=== PATIENT | female | born 1955 | race Caucasian/White ===

== ENCOUNTER 2018-01-10 14:58 | Outpatient (CLI) | payer BC | END 2018-01-10 14:59 | disposition home or self-care (01) | LOC: BICMAMMO 14:58 | PROVIDERS: ATTEND Obstetrics & Gynecology | DX: Z12.31 Encounter for screening mammogram for malignant neoplasm of breast (principal); N64.89 Other specified disorders of breast | CPT/HCPCS: 77063; 77067 ==

== ENCOUNTER 2018-01-15 14:30 | Outpatient (CLI) | payer BC | END 2018-01-15 14:31 | disposition home or self-care (01) | LOC: BICMAMMO 14:30 | PROVIDERS: ATTEND Obstetrics & Gynecology | DX: R92.2 Inconclusive mammogram (principal) | CPT/HCPCS: G0279 ==

== ENCOUNTER 2018-06-15 14:18 | Observation (INO) | payer BC, OTHER ==
--- NOTE | 2018-06-15 15:52 | RAD ---
RADIOGRAPH RIGHT KNEE 4 VIEWS: DATE: 06/15/18. TIME: 2:21 p.m. HISTORY: A 63-year-old female status post traumatic injury to the right knee. FINDINGS: There is a comminuted fracture of the patella, with several bone-width's displacement between the lar gest upper pole fragment and the largest lower pole fragment. There are several fragments in-between . There is prepatellar soft tissue thickening. No definite joint effusion. The distal femur, proxi mal tibia, and proximal fibula, appear to be intact. No dislocation. IMPRESSION: Acute, traumatic, comminuted, and significantly displaced, closed fracture of the patella. POS: [facility]
[2018-06-15 16:39] LABS: #Eosinphils 0.2 thou/uL (0.0-0.7); #Lymphocytes 1.3 thou/uL (1.20-3.40); #Monocytes 0.6 thou/uL (0.11-0.59); %Basophils 0.5 % (0.0-1.0); %Eosinophils 1.8 % (0.0-10.0); %Lymphocytes 14.4 % (21.0-51.0); %Monocytes 6.7 % (0.0-10.0); %Neutrophils 76.7 % (42.0-75.0); Hemoglobin 14.3 g/dL (12.0-16.0); Mean Corpuscular HGB CONC 34.9 g/dL (32.0-36.0); Mean Corpuscular Hemoglobin 34.3 pg (27.0-31.0); Mean Corpuscular Volume 98.1 fL (78.0-98.0); Mean Platelet Volume 6.8 fL (7.4-10.4); Platelet Count 193 thou/uL (130-400); RBC Distribution Width 11.2 % (11.5-14.5); Red Blood Cell (RBC) Count 4.17 mill/uL (4.20-5.40); White Blood Cell (WBC) Count 9.1 thou/uL (4.8-10.8)
[2018-06-15 16:45] LABS: INR-International Normal Ratio 1.1; Prothrombin Time 13.9 SEC (12.0-14.7)
[2018-06-15] MEDS ORDERED: CEFAZOLIN/Water 2 GM/20 ML SYRINGE SLOW IVP SCH (16:45)
[2018-06-15 16:46] LABS: PTT 30.9 SEC (22.9-36.1)
--- NOTE | 2018-06-15 16:58 | CON ---
DATE OF CONSULTATION: 06/15/2018 REQUESTING PHYSICIAN: Elian Martinez MD BRIEF HISTORY OF PRESENT ILLNESS: Patient is a pleasant 63-year-old lady, who was examined in the em ergency department with friends at bedside. She reports that earlier today she slipped and fell on s ome wet surface, landing directly on the point of her right knee. She reports immediate pain, swelli ng, and inability to ambulate. Upon arrival at [facility], x-rays were obtained that showed a comminuted fracture of the patella with displacement. Orthopedic consultation requested as well as request for trauma admission. PAST MEDICAL HISTORY: Remarkable for history of hypothyroidism and mild depression. PAST SURGICAL HISTORY: Hysterectomy. MEDICATIONS: Include Synthroid, hormone replacement, and an antidepressant, for which patient does n ot recall its name. ALLERGIES: None known. SOCIAL HISTORY: The patient has wine with dinner and does so most evenings. She denies a smoking hi story or recreational drug use. FAMILY HISTORY: Noncontributory. REVIEW OF SYSTEMS: The patient denies fevers, chills, or sweats. Denies chest pain or shortness of breath. Denies numbness or tingling in the lower extremity. PHYSICAL EXAMINATION: VITAL SIGNS: Temperature of 98.5 degrees orally. She is found to have a heart rate of 73, respirato ry rate of 16, and a blood pressure of 132/81. HEENT: Atraumatic, normocephalic. HEART: Shows a regular rate and rhythm without murmur. LUNGS: Clear to auscultation bilaterally with good breath sounds. CHEST: Chest wall is nontender. ABDOMEN: Flat and nontender. Pelvis is stable. EXTREMITIES: Remarkable for a lady, who denies any upper extremity discomfort. There is also no dis comfort or deformity of the left hip, knee, ankle, or foot. The right lower extremity is remarkable for a swollen knee with hemarthrosis. She is found to have palpable diastasis of her patellar fractu re. Hip, ankle, and foot appear atraumatic. She is able to wiggle her toes, but does have pain that is referred at the knee with attempts at dorsiflexion of the ankle. X-RAYS: Plain films from the emergency room are remarkable for a comminuted patellar fracture with d isplacement. LABORATORY DATA: Labs are pending with a CBC, metabolic panel, and INR ordered. ASSESSMENT: The patient is a 63-year-old lady, status post ground-level fall sustaining a comminuted right patellar fracture. PLAN: The patient does have a full stomach at this time, and as such, we will allow her to continue eating today and then place her at n.p.o. status after midnight with plans to take her to the operati ng room tomorrow morning for an open reduction and internal fixation of this patella. Today, I discu ssed with patient the risks and benefits of this procedure. The risks include, but are not limited t o bleeding, infection, nerve injury, DVT, PE, posttraumatic arthritis, loss of limb or life. Patient appears to understand and does wish to proceed. She will be admitted to Trauma Service and again n. p.o. after midnight with plans to undergo open reduction and internal fixation.
[2018-06-15 17:04] LABS: ALT (SGPT) 13 U/L (8-55); AST (SGOT) 16 U/L (5-34); Albumin 3.8 g/dL (3.4-4.8); Alkaline Phosphatase 42 U/L (40-150); Anion Gap 12 mmol/L (10-20); BUN (Urea Nitrogen) 14 mg/dL (9.8-20.1); Bilirubin, Total 0.4 mg/dL (0.2-1.2); Calc. Creatinine Clearance 0 mL/min (70-130); Carbon Dioxide 22 mmol/L (23-31); Chloride 107 mmol/L (98-107); Estimated GFR-MDRD 69; Globulin 2.4 g/dL (2.4-3.5); Glucose 124 mg/dL (80-115); Potassium 4.1 mmol/L (3.5-5.1); Protein, Total 6.2 g/dL (6.0-8.3); Sodium 137 mmol/L (136-145)
[2018-06-15] MEDS ORDERED: Dextrose 5% in Water 1,000 ML IV PRN (18:01)
[2018-06-15] MEDS ORDERED: Dextrose 50% Abboject 50 ML SYRINGE SLOW IVP PRN (18:01)
[2018-06-15] MEDS ORDERED: Ketorolac Tromethamine 30 MG/ML VIAL IVP PRN (18:01)
[2018-06-15 18:45] VITALS: BMI 20.1
--- NOTE | 2018-06-15 19:31 | RAD ---
CHEST ONE VIEW: 06/15/18 HISTORY: Preop. FINDINGS: Cardiac silhouette and pulmonary vasculature are unremarkable. Mediastinum is midline. Nipple shadow overlies the right lung base. No lobar consolidation or evidence of pneumothorax. IMPRESSION: No active cardiopulmonary abnormalities are demonstrated. POS: [facility]
--- NOTE | 2018-06-15 20:25 | HP ---
DATE OF CONSULTATION: 06/15/2018 ADMITTING PHYSICIAN: Dr. Quintana. CONSULTING PHYSICIAN: Dr. Baron, Orthopedics. HISTORY OF PRESENT ILLNESS: Ms. 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 She was ambulating in the hallway when she came across some water that was spilled in the floor. She did not recognize water was there and she slipped on the floor l anding directly on the point of her right knee. She was unable to ambulate and felt immediate pain. She was transported to [facility] by EMS. Workup in the emergency department i dentified a comminuted right patellar fracture. Orthopedic Surgery was consulted by ER physician. T rauma Surgery has been consulted for admission and management. PAST MEDICAL HISTORY: 1. Hypothyroidism. 2. Depression. 3. Glaucoma. PAST SURGICAL HISTORY: 1. Hysterectomy. 2. Breast augmentation. MEDICATIONS: 1. Synthroid. 2. Hormone replacement, for which she does not remember the name. 3. Antidepressant, for which she does not remember the name. ALLERGIES: No known drug allergies. SOCIAL HISTORY: Tobacco, none. Alcohol: One glass of wine with dinner per night. Drugs, None. REVIEW OF SYSTEMS: Constitutional: The patient denies chills, fever, recent weight loss or generali zed malaise. HEENT: Denies otorrhea or rhinorrhea, posterior neck pain, sore throat or neck tendern ess. Cardiovascular: Denies chest pain, palpitations or syncope. Respiratory: Denies cough, short ness of breath or wheezing. Gastrointestinal: Denies abdominal pain, constipation, diarrhea, nausea or vomiting. Genitourinary: Denies dysuria, hematuria or frequency. Musculoskeletal: Reports fal l. Reports right knee pain. Skin: Denies rashes or skin changes. Neurologic: Denies headache, di zziness, seizures, mental status changes or sensory changes. Heme/Lymphatic: Denies abnormal bleedi ng. PHYSICAL EXAMINATION: VITAL SIGNS: Blood pressure 115/75, pulse 70, respirations 18, temperature 98.2, pain 0, O2 sat 100% on room air. CONSTITUTIONAL: Well-developed, well-nourished female lying on bed, in no acute distress. HEENT: Atraumatic, normocephalic. No posterior neck tenderness. Trachea midline. RESPIRATORY: Bilateral breath sounds clear. Chest movement symmetrical. CARDIOVASCULAR: Regular rate and rhythm. Heart sounds normal. ABDOMEN: Soft, nontender, nondistended. Pelvis stable. EXTREMITIES: Right lower extremity with knee immobilizer. Neurovascular intact all extremities. Ca p refill brisk in all extremities. NEUROLOGIC: GCS 15. Awake, alert, and oriented x3. SKIN: No rashes or skin changes. Normal color. Warm and dry. BACK: Normal range of motion. No tenderness. LABORATORY DATA: CBC: WBC 9.1, RBC 4.17, hemoglobin 14.3, hematocrit 41.0, platelets 193. Coagulat ion: PT 13.9, INR 1.1. Chemistry: Sodium 137, potassium 4.1, chloride 107, carbon dioxide 22, BUN 14, creatinine 0.83, glucose 124, calcium 9.0, total bilirubin 0.4. ASSESSMENT: 1. Status post ground level fall. 2. Right comminuted knee fracture. 3. History of hypothyroidism, present on admission. 4. History of glaucoma. 5. History of depression. PLAN: 1. Admit to surgical floor by Trauma Services. 2. Regular diet, then n.p.o. after midnight. 3. IV fluids at midnight. 4. IV Tylenol and Toradol. Morphine for breakthrough pain. 5. EKG pending. We will check. 6. Pepcid for gastritis prophylaxis. 7. CBC and BMP in a.m. prior to OR. 8. PT and OT consultation. 9. Case management for discharge planning. Anticipate patient will discharge postoperatively. The patient was reviewed with Dr. Quintana, who agrees with plan.
[2018-06-15] MEDS: Famotidine/PF 20 mg/2ml Vial SLOW IVP SCH (21:22)
[2018-06-16] MEDS: Sodium Chloride 0.9% 1,000 ML IV SCH ×2 (00:26→11:56)
[2018-06-16] MEDS: Acetaminophen 1,000 MG in Premix Bag 1 BAG IVPB SCH ×3 (00:26→11:56)
[2018-06-16 05:31] LABS: #Basophils 0.1 thou/uL (0.0-0.2); #Eosinphils 0.2 thou/uL (0.0-0.7); #Lymphocytes 2.1 thou/uL (1.20-3.40); #Monocytes 0.8 thou/uL (0.11-0.59); #Neutrophils 3.9 thou/uL (1.40-6.50); %Basophils 0.7 % (0.0-1.0); %Eosinophils 3.4 % (0.0-10.0); %Lymphocytes 29.3 % (21.0-51.0); %Neutrophils 55.6 % (42.0-75.0); Mean Corpuscular HGB CONC 34.6 g/dL (32.0-36.0); Mean Corpuscular Hemoglobin 34.2 pg (27.0-31.0); Mean Corpuscular Volume 98.9 fL (78.0-98.0); Mean Platelet Volume 6.9 fL (7.4-10.4); Platelet Count 165 thou/uL (130-400); RBC Distribution Width 11.3 % (11.5-14.5)
[2018-06-16 05:58] LABS: Anion Gap 11 mmol/L (10-20); BUN (Urea Nitrogen) 13 mg/dL (9.8-20.1); Calc. Creatinine Clearance 66 mL/min (70-130); Calcium 8.1 mg/dL (7.8-10.44); Carbon Dioxide 25 mmol/L (23-31); Chloride 108 mmol/L (98-107); Estimated GFR-MDRD 76; Glucose 87 mg/dL (80-115); Magnesium 2.1 mg/dL (1.6-2.6); Phosphorus 3.9 mg/dL (2.3-4.7); Potassium 3.7 mmol/L (3.5-5.1); Sodium 140 mmol/L (136-145)
[2018-06-16] MEDS ORDERED: CEFAZOLIN/Water 2 GM/20 ML SYRINGE ONE (07:38)
[2018-06-16] MEDS ORDERED: Fentanyl 100 MCG/2 ML VIAL ONE ×3 (07:44→11:03)
[2018-06-16] MEDS ORDERED: Promethazine HCl 25 MG/ML VIAL IM PRN (10:16)
[2018-06-16] MEDS ORDERED: Promethazine HCl 25 MG/ML VIAL SLOW IVP PRN (10:16)
[2018-06-16] MEDS ORDERED: Ondansetron HCl/PF 4 MG/2 ML Vial IVP PRN (10:16)
[2018-06-16] MEDS ORDERED: Ketorolac Tromethamine 30 MG/ML VIAL ONE (10:59)
--- NOTE | 2018-06-16 11:05 | RAD ---
2 VIEWS RIGHT KNEE: Date: 06/16/18 HISTORY: Open reduction and internal fixation right knee fraacture4. FINDINGS: Two views of right knee obtained. Images demonstrate open reduction and internal fixation of a patell ar fracture. Wires are in place. Proximal and distal patellar fracture fragments are in alignment. IMPRESSION: Open reduction and internal fixation of patellar fracture. POS: [facility]
[2018-06-16] MEDS ORDERED: Lidocaine 1% PF 5 ML VIAL ONE (11:13)
[2018-06-16] MEDS ORDERED: Ondansetron HCl/PF 4 MG/2 ML Vial ONE (11:13)
[2018-06-16] MEDS ORDERED: PHENYLEPHRINE-NS 100 MCG/ML 10 ML SYRINGE ONE (11:13)
[2018-06-16] MEDS ORDERED: PROPOFOL 200 MG/20 ML VIAL ONE (11:13)
[2018-06-16] MEDS: Famotidine/PF 20 mg/2ml Vial SLOW IVP SCH (11:56)
--- NOTE | 2018-06-16 12:35 | OP ---
DATE OF SURGERY: 06/16/2018. PREOPERATIVE DIAGNOSIS: Right severely comminuted patella fracture, closed. POSTOPERATIVE DIAGNOSIS: Right severely comminuted patella fracture, closed. SURGICAL PROCEDURE: Open reduction and internal fixation of right patella. ANESTHESIA: General. SURGEON: Nate Baron M.D. HELP DESK SPECIALIST: Ade Villagran PA-C TOURNIQUET TIME: 93 minutes at 300 mmHg. BLOOD LOSS: Less than 10 mL. IMPLANTS: 0.062 K-wires x2 with 18 gauge cerclage wire. COMPLICATIONS: None. DRAINS: None. SPECIMEN: None. FINDINGS: Severely comminuted patellar fracture with satisfactory reduction. INDICATIONS: Patient is a pleasant 63-year-old lady status post ground level fall landing directly o n her right patella. She sustained an essentially stellate fracture of the right patella with severe comminution and displacement. After discussion with patient including risks and benefits, we decide d to proceed with open reduction and internal fixation. Informed consent has been obtained. I belie ve all questions have been answered. DESCRIPTION OF PROCEDURE: The patient was brought to the operating room and a timeout performed foll owed by induction of general anesthesia. Next, patient was positioned supine on the OR table and a s terile prep and drape was performed of the right lower extremity. Next, the limb was exsanguinated w ith Esmarch bandage, tourniquet inflated to 300 mmHg. This was followed by a midline anterior knee i ncision. After skin was sharply incised, dissection was carried down to the underlying quadriceps me chanism. An incision was made along the peritenon of the patellar tendon. This was reflected medial ly and laterally. Next, the fracture was fully exposed. There was found to be a superior pole that was essentially in 1 piece. There was found to be a couple of loose pieces of bone medially in the g utter and then the inferior pole was split into 4 fragments. Although split in 4 fragments, these 4 fragments still had soft tissue attachment to them. Once the fracture hematoma was lavaged from the wound, the fracture was reduced and held in place with a combination of bone tenaculums and K-wires. This had to be adjusted a couple of times and lateral films showed what appeared to be a step off at the medial facet. However, this was actually a void of bone that was removed as part of these loose fragments in the medial gutter. Once reduction was felt to be acceptable, an inferior to superior K -wire was passed with the second one parallel to the first under C-arm guidance. This was then follo wed by passage of an 18 gauge cerclage wire deep to the pins superiorly octavio crossing anteriorly and then again deep to the pins and inferiorly with 2 tensioning loops created. With tensioning of thes e loops, there was found to be good compression across the fracture and excellent reduction of the turner int surface. The K-wires were then bent right angles and cut within the soft tissue. The tenaculums were then removed from the knee. Final AP, lateral C-arm images were obtained that showed acceptabl e alignment of the fracture and acceptable positioning of the hardware. The wound was again irrigate d and then closed in layers, #1 Vicryl was used to reapproximate the medial and lateral retinacular t ears. This was followed by some 0 Vicryl for soft tissue over the actual fracture repair followed by 2-0 Vicryl and malena for the skin. A Xeroform gauze, Webril, and knee immobilizer was applied to the leg. The patient was then transferred to recovery room in stable condition. Tourniquet was let down at completion of dressing with a total time of 93 minutes. There were no complications. She to lerated the procedure well.
[2018-06-16] MEDS ORDERED: traMADol HCl 50 MG TAB PO PRN (13:36)
[2018-06-16] MEDS ORDERED: Ibuprofen 600 MG TAB PO SCH (14:00)
[2018-06-16] MEDS ORDERED: traMADol HCl 50 MG TAB PO SCH (14:00)
[2018-06-16] MEDS ORDERED: Acetaminophen 500 MG TAB PO SCH (14:00)
[2018-06-16] MEDS ORDERED: CEFAZOLIN/Water 2 GM/20 ML SYRINGE SLOW IVP SCH (16:00)
[2018-06-16 18:02] VITALS: BP 109/73; TEMP 97.3
--- NOTE | 2018-06-17 18:54 | ADD-HP ---
ADDENDUM The patient was seen in conjunction with Edelmira Gentile, trauma nurse practitioner. For full details, please see her H&P, the details of which I have confirmed. In short, Ms. Prather is a 63-year-old, he althy woman, who fell on some water on the floor landing directly on her right knee. She was unable to ambulate and felt movement in her knee cap, so was brought by EMS to the emergency department wher e she was found to have a comminuted right patellar fracture. Orthopedic Surgery has already evaluat ed her, and she is on the OR schedule for tomorrow morning. She has not noticed pain in any other ar ea of her body including her right hip. PAST MEDICAL HISTORY: Hypothyroidism, depression and glaucoma. PAST SURGICAL HISTORY: Total hysterectomy and breast augmentation. MEDICATIONS: Include Synthroid, estradiol and Wellbutrin. ALLERGIES: She has no known drug allergies. SOCIAL HISTORY: She does not smoke or use illicit drugs. She drinks moderately. REVIEW OF SYSTEMS: Ten-system review of systems is negative except for the pain in her right knee. PHYSICAL EXAMINATION: A complete physical examination was performed, and no abnormalities or injurie s noted except for a small abrasion on her right knee with pain and swelling of that area. She is ne urovascularly intact distally. LABORATORY DATA AND X-RAY FINDINGS: Labs reviewed and are unremarkable. Knee x-ray shows a comminut ed patellar fracture and chest x-ray was normal. ASSESSMENT: Comminuted patellar fracture, on the schedule for operative repair tomorrow. Postoperat ively, she will undergo gait training with physical therapy and will likely be able to be discharged home.
--- NOTE | 2018-06-18 12:42 | EKG ---
Test Reason : PRE OP Blood Pressure : / mmHG Vent. Rate : 069 BPM Atrial Rate : 069 BPM P-R Int : 136 ms QRS Dur : 084 ms QT Int : 416 ms P-R-T Axes : 050 024 053 degrees QTc Int : 445 ms Normal sinus rhythm Normal ECG No previous ECGs available Confirmed by SIERRA PEREZ ([id number]) on 06/18/2018 12:42:02 PM Referred By: CHEKO FRIAS Confirmed By:SIERRA PEREZ
--- NOTE | 2018-06-18 21:43 | DIS ---
DATE OF ADMISSION: 06/15/2018 DATE OF DISCHARGE: 06/16/2018 ADMISSION DIAGNOSES: 1. Status post mechanical fall. 2. Acute traumatic pain. 3. Right patellar fracture. 4. History of depression, history of glaucoma. 5. History of hypothyroidism. DISCHARGE DIAGNOSES: 1. Status post mechanical fall. 2. Acute traumatic pain. 3. Right patellar fracture. 4. History of depression, history of glaucoma. 5. History of hypothyroidism. CONSULTANTS: Dr. Baron, orthopedic surgery. PROCEDURES: On 06/16/2018, open reduction and internal fixation of the right patella with Dr. Angie rice. HOSPITAL COURSE: Tiana Prather is a 63-year-old female who presented to [facility] as a mechanical fall, status post slipping in water. She was evaluated in the emergency room, found to have the abo ve injuries. Patient was admitted to the general surgical floor and underwent operative intervention to her injury on 06/16/2018. Postoperatively, the patient was doing well. Pain was controlled with p.o. analgesics. She was able to mobilize after working with physical therapy with crutches. She w as tolerating a general diet. She was stable for discharge on the evening of 06/16/2018. DISCHARGE DISPOSITION: Home. DISCHARGE CONDITION: Good. PHYSICAL EXAMINATION: VITAL SIGNS: Temperature 97.3, pulse 74, blood pressure 109/73, respirations 20, O2 sat 98%-100% on room air. GENERAL: Well-developed female in no acute distress, sitting in bed. HEAD: Normocephalic, atraumatic. PULMONARY: Normal work of breathing, symmetric rise. CARDIOVASCULAR: Regular rate and rhythm. MUSCULOSKELETAL: Right lower extremity in a knee immobilizer. She was neurovascularly intact distal side of her injury. NEUROLOGIC: No focal deficit noted. DISCHARGE INSTRUCTIONS: Discharge instructions were provided to the patient who vocalized understand ing prior to discharge. She should keep her orthopedic dressing clean, dry, and intact. She is only toe touch or touchdown weightbearing to the right lower extremity and was instructed on crutch use a nd the importance of maintaining her weightbearing status by physical therapy prior to discharge. FOLLOWUP APPOINTMENTS: Patient is to follow up with her primary care provider as needed. She should follow up with Dr. Baron from orthopedic surgery in approximately 10-14 days. She does not need to follow up with Trauma services formally but may call our office with any questions. DISCHARGE MEDICATIONS: Patient was discharged home on her home medications with the addition of over -the-counter Tylenol and ibuprofen. She was provided a prescription for Ultram 50 mg q.6 hours p.r.n . for severe pain. This is merely a summary of the patient's hospitalization. For more in depth inf ormation, please see her medical record in its entirety.
== END 2018-06-16 17:54 | disposition home or self-care (01) ==
LOC: ERS 14:18 → SURG A 16:14
PROVIDERS: ADMIT Surgery; ATTEND Surgery
PROC: 0QSD04Z Reposition Right Patella with Internal Fixation Device, Open Approach (ICD-10-PCS; principal; 2018-06-16)
DX: S82.041A Displaced comminuted fracture of right patella, initial encounter for closed fracture (principal); E03.9 Hypothyroidism, unspecified; F32.9 Major depressive disorder, single episode, unspecified; G89.11 Acute pain due to trauma; Z79.890 Hormone replacement therapy; Z79.899 Other long term (current) drug therapy; W01.0XXA Fall on same level from slipping, tripping and stumbling without subsequent striking against object, initial encounter; Y92.219 Unspecified school as the place of occurrence of the external cause; Y99.0 Civilian activity done for income or pay
CPT/HCPCS: 36415; 71045; 76001; 80048; 80053; 83735; 84100; 85025; 85610; 85730; 93005; 93010; 96361; 96374; 96375; 96376; C1713; G0378; G0390; G8978-GP-CI; G8979-GP-CI; G8980-GP-CI; J0131; J1885; J2001; J2270; J2405; J2704; J3010; S0028

== ENCOUNTER 2022-11-03 10:49 | Outpatient (CLI) | payer MEDICARE | END 2022-11-03 10:50 | disposition home or self-care (01) | LOC: BICMAMMO 10:49 | PROVIDERS: ATTEND Internal Medicine | DX: M85.852 Other specified disorders of bone density and structure, left thigh (principal); M85.851 Other specified disorders of bone density and structure, right thigh | CPT/HCPCS: 77080 ==